=== PATIENT | female | born 1965 | race Two or more races ===

== ENCOUNTER 2024-09-08 16:42 | Emergency (ER) | payer MEDICAID, SELFPAY ==
[2024-09-08 16:43] VITALS: BMI 26.5
[2024-09-08 17:12] VITALS: BP 138/85; PULSE 83; RESP 18; TEMP 36.8; O2SAT 97
--- NOTE | 2024-09-08 17:48 | PD.EDABDPN ---
ED Abdominal Pain RME/HPI General Chief Complaint: Abdominal Pain Stated complaint: EPIGASTRIC PAIN X3 DAYS WITH N/V Time seen by provider: 09/08/24 17:23 Arrival date/time: 09/08/24 16:42 Source: patient and family Limitations: no limitations RME / HPI complaint: abdominal pain Onset (ago): day(s) (3 days) Consistency: constant Severity: moderate Severity scale (1-10): 5 Quality: cramping, stabbing and aching Radiation: none Related Data Home Medications ?Medication ?Instructions ?Recorded ?Confirmed lisinopril 2.5 mg tablet (Zestril) 2.5 mg PO QDAY ##30 10/05/16 10/01/18 montelukast 10 mg tablet 10 mg PO QPM 12/19/17 10/01/18 pantoprazole 40 mg tablet,delayed 40 mg PO QDAY 12/19/17 10/01/18 release Previous Rx's ?Medication ?Instructions ?Recorded acetaminophen 325 mg capsule 325 mg PO Q4H PRN pain #30 caps 10/01/18 aluminum-mag hydroxide-simethicone 10 ml PO TID PRN indigestion #300 04/09/21 200 mg-200 mg-20 mg/5 mL oral susp mL (Maalox Advanced) cephalexin 500 mg tablet 500 mg PO TID #21 tabs 09/11/24 Allergies Allergy/AdvReac Type Severity Reaction Status Date / Time duloxetine (From Cymbalta) Allergy Severe Abdominal Verified 09/10/24 16:57 Pain egg Allergy Severe Abdominal Verified 09/10/24 16:57 Pain milk Allergy Severe Abdominal Verified 09/10/24 16:57 Pain Review of Systems Constitutional Constitutional: Reports system reviewed and no additional complaints, except as documented Eyes Eyes: Reports system reviewed and no additional complaints, except as documented, Denies dry eyes, Denies exophthalmos and Reports floaters Cardiovascular Cardiovascular: Denies chest pain with activity and Denies claudication ED Exam General Limitations: Present no limitations General appearance: Present alert and in no apparent distress Head Head exam: Present atraumatic Eye Eye exam: Present normal appearance and EOMI ENT ENT exam: Present normal exam Neck Neck exam: Present normal inspection and full ROM Chest Chest inspection: Present normal inspection and symmetric chest wall rise Respiratory Respiratory exam: Present normal lung sounds bilaterally and respiratory distress Cardiovascular Cardiovascular exam: Present regular rate and normal rhythm Abdominal Exam Abdominal exam: Present soft and distention Extremities Exam Extremities exam: Present normal inspection and full ROM Back Exam Back exam: Present normal inspection and full ROM Neurological Exam Neurological exam: Present alert and oriented X3 Psychiatric Psychiatric exam: Present normal affect and normal mood Skin Skin exam: Present warm, dry, intact and normal color Course Quality Measures none Orders Category Date Time Status CT Screening NOW Care 09/08/24 17:50 Completed IV [Insert IV] NOW Care 09/08/24 20:[address] abdomen pelvis w con Stat Exams 09/08/24 17:49 Completed CBC Stat Lab 09/08/24 18:10 Completed CMP [Comprehensive Metabolic Panel] Stat Lab 09/08/24 18:10 Completed Lipase Stat Lab 09/08/24 18:10 Completed Ketorolac Inj [Toradol Inj] Med 09/08/24 22:50 Discontinued 30 mg IM X1 ONE DONE Vital Signs Vital signs: Vital Signs Temperature 98.3 F 09/08/24 17:12 Pulse Rate 83 09/08/24 17:12 Respiratory Rate 18 09/08/24 17:12 Blood Pressure 138/85 H 09/08/24 17:12 Pulse Oximetry (%) 97 09/08/24 17:12 Oxygen Delivery Method Room Air 09/08/24 17:12 Pulse ox room air is 97% Abdominal Pain MDM MDM Narrative MDM Narrative:: Patient had a CAT scan of the abdomen which was essentially negative. The CBC CMP UA were also essentially negative to include the lipase. Patient will be discharged home to follow-up with primary care physician within a week. Patient be discharged in no apparent distress Patient data External records reviewed:: Other (specify) Clinical information provided by:: none Social determinants that could affect healthcare access:: none Patient has the following chronic illnesses:: Patient does not have a chronic illness How is presenting disease/condition affected by chronic disease/condition?: no chronic disease Evaluation data The following diagnostics were reviewed and interpreted by me:: lab results (Results demonstrate no apparent anomalies.) and radiology exam(s) (CT of the abdomen demonstrate no apparent anomalies of the abdomen.) Lab and/or radiology exams considered but not ordered:: NA Interpretation Summary: NA Medications / Prescriptions Medications or Prescriptions considered but not ordered:: NA Medication administrations:: Medication Administration History Discontinued Medications Ketorolac Tromethamine (Ketorolac Inj 60 Mg/2 Ml Vial) 30 mg IM X1 ONE Stop: 09/08/24 22:51 Last Admin: 09/08/24 23:21 Dose: 30 mg Documented By: KF Done Consultations Consultation(s) initiated? (list below): No Diagnosis Differential diagnosis abdominal pain: abdominal pain, acute appendicitis, diverticulitis and gastroenteritis Most likely diagnosis given after review of the tests above:: Abdominal pain unknown etiology Admission Indicated Admission indicated?: not indicated Admission Request Was there a request for admission?: No Disposition Plan Disposition Plan: Discharge Discharge Attestation Discharge Attestation: The patient and all family members were given an opportunity to ask questions and understood the discharge instructions. Discharge instructions specifically effects, indications for sooner follow up or return to the emergency department, and the expected course of current diagnosis. Patient condition: Stable Discharge Plan Plan Patient Disposition: HOME (Self Care) Discharge Disposition comment: Patient will be discharged in no apparent distress Prescriptions/Referrals Prescriptions/Med Rec: No Action lisinopril [Zestril] 2.5 MG tablet 2.5 mg PO QDAY Qty: 30 pantoprazole 40 mg Tablet,Delayed Release (Dr/Ec) 40 mg PO QDAY montelukast 10 mg Tablet 10 mg PO QPM acetaminophen 325 mg capsule 325 mg PO Q4H PRN (Reason: pain) Qty: 30 0RF alum-mag hydroxide-simeth [Maalox Advanced] 200-200-20 mg/5 mL suspension 10 ml PO TID PRN (Reason: indigestion) Qty: 300 0RF cephalexin 500 mg tablet 500 mg PO TID Qty: 21 0RF Referrals: No Primary/Family,Physician [Primary Care Provider] - In 1 week Problem List Clinical Impression: Abdominal pain Impression comment: Abdominal pain unknown etiology Patient/Caregiver Discharge Instructions Education Materials: Abdominal Pain Print Language: Tajik Stand Alone Forms: Emmie Award Info., Patient Portal Info Letter PA/IT SUPPORT ENGINEER Supervising Physician PA/IT SUPPORT ENGINEER Supervising Physician: IAN CAZARES
--- NOTE | 2024-09-08 17:49 | XR_ITS ---
Examination: CT abdomen with intravenous contrast CT pelvis with intravenous contrast 2-D coronal reconstructions 2-D sagittal reconstructions Date and time of exam:September 08, 2024 1001 hours Comparison March 02, 2016. INDICATIONS: Nausea vomiting abdominal pain and epigastric pain beginning 3 days ago CTDI: vol (mGy) 8.61 DLP: (mGycm) 4.78 Technique: Multiple axial sections of the abdomen and pelvis have been obtained. 64 slice high-resolution scanner used. 3 mm axial sections have been obtained, post intravenous injection 60 cc [id number] 2-D sagittal, coronal reconstructions obtained. Low dose protocols were performed. One or more of the following dose reduction techniques were used; automated exposure control, adjustment of the mA and/or KV according to patient size, use of iterative reconstruction technique. Findings: No focal liver or splenic lesions Absent gallbladder No extrahepatic biliary tract dilatation No pancreatic or adrenal mass No renal or ureteral calculi, no hydronephrosis Abdominal aortic calcification no aneurysmal dilatation Absent appendix No diverticulitis No bowel obstruction Retroverted uterus No pelvic mass Bilateral intact Moderate osteopenia IMPRESSION: No renal or ureteral calculi, no hydronephrosis Absent appendix No bowel obstruction diverticulitis or free air
[2024-09-08 18:23] LABS: Basophils % (Auto) 0 % (0-2.5); Eosinophils % (Auto) 0 % (0-10); Hematocrit 43.9 % (36.0-46.0); Hemoglobin 15.2 g/dL (12.0-16.0); Immature Granulocytes % (Auto) 0 % (0-0); Immature Granulocytes Auto 0.03 Thou/mm3 (0.00-0.00); Lymphocytes # (Auto) 2.5 Thou/mm3 (1.0-4.8); Lymphocytes % (Auto) 23 % (10-50); Mean Corpuscular HGB Conc 34.6 g/dl (31.0-37.0); Mean Corpuscular Hemoglobin 30.1 pg (25.0-35.0); Mean Corpuscular Volume 87 fL (80-100); Monocytes # (Auto) 0.6 Thou/mm3 (0.0-0.8); Monocytes % (Auto) 6 % (0-12); Neutrophils # (Auto) 7.8 Thou/mm3 (1.8-7.7); Neutrophils % (Auto) 71 % (37-80); Nucleated Red Blood Cell % 0 /100 WBC (0); Platelet Count 284 Thou/mm3 (140-440); RDW Standard Deviation 42.5 fL (36.4-46.3); Red Blood Count 5.05 Miln/mm3 (4.00-5.20); White Blood Count 11.1 Thou/mm3 (3.6-11.0)
[2024-09-08 18:39] LABS: Alanine Aminotransferase 23 U/L (10-49); Albumin, Serum 4.9 gm/dL (3.5-5.0); Albumin/Globulin Ratio 1.6 (1.2-2.2); Alkaline Phosphatase 86 U/L (46-116); Anion Gap 9 (7-16); Aspartate Amino Transferase 16 U/L (0-34); BUN/Creatinine Ratio 21 Ratio (12-20); Bilirubin,Total 1.1 mg/dL (0.3-1.2); Blood Urea Nitrogen 19 mg/dL (9-23); Calcium 9.2 mg/dL (8.3-10.6); Calcium (Corrected) 9.2 mg/dL (8.5-10.1); Carbon Dioxide 25.6 mMol/L (20.0-31.0); Chloride 99 mMol/L (98-107); Creatinine (Component) 0.9 mg/dL (0.6-1.3); Estimated Creatinine Clearance 63.9 mL/min (>60); Glucose 108 mg/dL (74-106); Lipase 51 U/L (12-53); Osmolality,Calculated 271 (275-295); Potassium 4.3 mMol/L (3.4-5.1); Sodium 134 mMol/L (136-145); Total Protein 7.9 gm/dL (5.7-8.2); eGFR > 60 See Note
[2024-09-08] MEDS: KETOROLAC INJ 60 MG/2 ML VIAL 30 MG IM (23:21)
[2024-09-08 23:32] VITALS: BP 133/75; PULSE 77; RESP 16; TEMP 36.9; O2SAT 98
== END 2024-09-08 23:34 | disposition home or self-care (01) ==
PROVIDERS: Physician Assistant; Emergency Provider Emergency Medicine
DX: R10.13 Epigastric pain (principal); R11.2 Nausea with vomiting, unspecified
CPT/HCPCS: 36415; 74177; 80053; 83690; 85025; 96372; 99285; A4649; J1885; Q9967

== ENCOUNTER 2024-09-10 16:53 | Emergency (ER) | payer MEDICAID, SELFPAY ==
--- NOTE | 2024-09-10 17:08 | XR_ITS ---
Examination: PA chest single view TECHNIQUE: Upright PA chest single view Date and time: September 10, 2024 1718 hours Comparison April 08, 2021 INDICATIONS: Onset chest pain today. FINDINGS: Normal heart size Lungs are clear. The osseous structures are intact IMPRESSION: No active disease
[2024-09-10 17:09] VITALS: BP 123/74; PULSE 83; RESP 18; TEMP 36.7; O2SAT 98
--- NOTE | 2024-09-10 17:09 | EKG_ITS ---
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
--- NOTE | 2024-09-10 17:22 | PD.EDRME ---
Rapid Medical Screening Exam RME Arrival date/time: 09/10/24 16:53 58-year-old female presents emergency department today for complaints of dizziness abdominal pain and weight loss Chief Complaint: Dizziness Vital signs: Vital Signs Temperature 98.0 F 09/10/24 17:09 Pulse Rate 83 09/10/24 17:09 Respiratory Rate 18 09/10/24 17:09 Blood Pressure 123/74 09/10/24 17:09 Pulse Oximetry (%) 98 09/10/24 17:09 Oxygen Delivery Method Room Air 09/10/24 17:09
[2024-09-10 17:39] LABS: Basophils % (Auto) 0 % (0-2.5); Eosinophils % (Auto) 0 % (0-10); Hematocrit 39.5 % (36.0-46.0); Hemoglobin 14.1 g/dL (12.0-16.0); Immature Granulocytes % (Auto) 0 % (0-0); Immature Granulocytes Auto 0.04 Thou/mm3 (0.00-0.00); Lymphocytes # (Auto) 2.8 Thou/mm3 (1.0-4.8); Lymphocytes % (Auto) 22 % (10-50); Mean Corpuscular HGB Conc 35.7 g/dl (31.0-37.0); Mean Corpuscular Hemoglobin 30.5 pg (25.0-35.0); Mean Corpuscular Volume 86 fL (80-100); Monocytes # (Auto) 0.9 Thou/mm3 (0.0-0.8); Monocytes % (Auto) 7 % (0-12); Neutrophils % (Auto) 70 % (37-80); Nucleated Red Blood Cell % 0 /100 WBC (0); Platelet Count 259 Thou/mm3 (140-440); RDW Standard Deviation 41.9 fL (36.4-46.3); Red Blood Count 4.62 Miln/mm3 (4.00-5.20); White Blood Count 12.8 Thou/mm3 (3.6-11.0)
[2024-09-10 17:57] LABS: Collection Type, Urine Clean Catch; RBC,Urine 0 /hpf (0-3)
[2024-09-10 18:01] LABS: Partial Thromboplastin Time 26.5 Seconds (22.0-36.0); Prothrombin Time 11.4 Seconds (9.0-12.2)
[2024-09-10 18:03] LABS: B-Type Natriuretic Peptide < 20 pg/mL (0-100)
[2024-09-10 18:05] LABS: Alanine Aminotransferase 34 U/L (10-49); Albumin, Serum 4.8 gm/dL (3.5-5.0); Albumin/Globulin Ratio 1.8 (1.2-2.2); Alkaline Phosphatase 80 U/L (46-116); Anion Gap 11 (7-16); Aspartate Amino Transferase 20 U/L (0-34); BUN/Creatinine Ratio 26 Ratio (12-20); Bilirubin,Total 0.9 mg/dL (0.3-1.2); Blood Urea Nitrogen 34 mg/dL (9-23); Calcium 8.8 mg/dL (8.3-10.6); Calcium (Corrected) 8.8 mg/dL (8.5-10.1); Carbon Dioxide 25.3 mMol/L (20.0-31.0); Chloride 97 mMol/L (98-107); Creatinine (Component) 1.3 mg/dL (0.6-1.3); Globulin 2.7 gm/dL (2.3-3.5); Glucose 95 mg/dL (74-106); Magnesium 2.7 mg/dL (1.6-2.6); Osmolality,Calculated 273 (275-295); Potassium 3.8 mMol/L (3.4-5.1); Sodium 133 mMol/L (136-145); Total Protein 7.5 gm/dL (5.7-8.2); Troponin I < 0.002 ng/mL (0.0-0.045); eGFR 48 See Note
[2024-09-10 18:20] LABS: Bacteria,Urine Rare; Bilirubin,Urine Negative (Negative); Blood,Urine Negative (Negative); Clarity,Urine Clear (Clear/Hazy); Color,Urine Yellow (Lt Yel-Yel); Glucose, Urine Negative (Negative); Hyaline Casts,Urine 1 /hpf (0-1); Ketones,Urine Negative (Negative); Leukocyte Esterase,Urine Positive (Negative); Nitrite,Urine Negative (Negative); PH,Urine 5.5 (5.0-7.0); Protein,Urine Negative (Neg - Trace); Specific Gravity,Urine 1.018 (1.001-1.035); Squamous Epithelial Cell,Urine 2 /hpf (0-5); Urobilinogen,Urine Negative mg/dL (0.0-1.0); WBC,Urine 4 /hpf (0-5)
[2024-09-10 18:31] LABS: Amphetamine/Methamp Scrn,U Negative (Negative); Barbiturate Screen,Urine Negative (Negative); Benzodiazepines Screen,Urine Negative (Negative); Benzoylecgonine Screen, Ur Negative (Negative); Fentanyl Screen,Urine Negative (Negative); Opiate Screen,Urine Negative (Negative); THC Screen,Urine Negative (Negative)
[2024-09-10 20:49] VITALS: BP 142/72; PULSE 85; RESP 20; TEMP 36.7; O2SAT 98; BMI 27.4
--- NOTE | 2024-09-10 21:09 | XR_ITS ---
Examination: Abdomen sonogram, Limited Date and time of exam: September 11, 1999 2510 0 9:00 PM INDICATIONS: Epigastric pain and vomiting beginning 4 days ago Technique: Real-time fleming scale transabdominal sonographic images of the upper abdomen obtained. Findings: Absent gallbladder Common bile duct 0.5 cm Pancreatic head 2.8 cm Liver 13.3 cm no liver lesions Normal hepatopedal portal venous flow Patent IVC IMPRESSION: Normal common bile duct Liver normal size no focal liver lesions
--- NOTE | 2024-09-10 21:11 | EDNOTE_ITS ---
ED Dizzyness RME/HPI General Chief Complaint: Dizziness Stated Complaint: [facility] SENT FOR LOW BP, DIZZINESS, FEALING WEAK, Time Seen by Provider: 09/10/24 21:06 Arrival date/time: 09/10/24 16:53 RME / HPI RME / HPI Narrative: 09/10/24 16:53 58-year-old female presents emergency department today for complaints of dizziness abdominal pain and weight loss DR. MOODY?S MAIN ED EVALUATION: 58-year-old female with history of Gall bladder disease, GERD, Anemia, and Type II DM presenting to the emergency department via private auto who is presenting for chief complaint of dizziness and stabbing RUQ pain, 11/30 with no radiation x 6 days. Patient was sent by her PCP for further evaluation of unresolved dizziness and low blood pressure reading in their office today. Patient was seen here on Sunday and had a CT showing no acute findings, no obstruction, and no appendix. She also reports weight loss over the last few months and 2 episodes of vomiting. Patient denies diarrhea or any other associated symptoms or medical complaints. - PMH: Migraine, Hypertension, Asthma, Gall Bladder Disease, Gastroesophageal Reflux Disease, Arthritis, Diabetes Mellitus Type 2, Anemia - PSH: Appendectomy - Social history: Denies - Current medications: Reviewed PCP is Abdias Sosa MD MD complaint: dizziness Onset (ago): day(s) () History of trauma: No Associated symptoms: other (Abdominal pain (11/30)) Related Data Home Medications ?Medication ?Instructions ?Recorded ?Confirmed lisinopril 2.5 mg tablet (Zestril) 2.5 mg PO QDAY ##30 10/05/16 10/01/18 montelukast 10 mg tablet 10 mg PO QPM 12/19/17 pantoprazole 40 mg tablet,delayed 40 mg PO QDAY 10/01/18 release Previous Rx's ?Medication ?Instructions ?Recorded acetaminophen 325 mg capsule 325 mg PO Q4H PRN pain #3 0 caps 10/01/18 aluminum-mag hydroxide-simethicone 10 ml PO TID PRN in digestion #300 04/09/21 200 mg-200 mg-20 mg/5 mL oral susp mL (Maalox Advanced) cephalexin 500 mg tablet 500 mg PO TID #21 tabs 09/11 Allergies Allergy/AdvReac Type Severity Reaction Status Date / Time duloxetine (From Cymbalta) Allergy Severe Abdominal Verified 09/10/24 16:57 Pain egg Allergy Severe Abdominal Verified 09/10/24 16:57 Pain milk Allergy Severe Abdominal Verified 09/10/24 16:57 Pain Review of Systems Review of Systems Systems Reviewed: All systems reviewed, normal except as documented Constitutional Constitutional: Reports weight loss ENT Ears, Nose, Mouth, and Throat: Reports vertigo Gastrointestinal Gastrointestinal: Reports abdominal pain (RUQ/Epigastric), Reports vomiting (x2) and Denies other (diarrhea) Neurologic Neurologic: Reports vertigo Past Medical History Past Medical History NEUROLOGIC: Positive Migraine CARDIAC: Positive Hypertension RESPIRATORY: Positive Asthma GASTROINTESTINAL: Positive Gall Bladder Disease and Gastroesophageal Reflux Disease REPRODUCTIVE: Positive Previous Pregnancies MUSCULOSKELETAL: Positive Musculoskeletal Disorders and Arthritis ENDOCRINE: Positive Diabetes Mellitus Type 2 HEMATOLOGIC: Positive Anemia (2017 NO MED) OTHER HISTORY: Positive Chicken Pox and Measles Family History FAMILY HISTORY: Positive Family Respiratory Disorders, Family Cardiac Disorders, Family Cancer and Family Surgery Surgical History SURGICAL: Positive Abdominal Surgery (Appendectomy) ED Exam General General appearance: Present in no apparent distress Eye Eye exam: Present normal appearance, PERRL and EOMI ENT ENT exam: Present normal exam, normal oropharynx, mucous membranes moist and TM's normal bilaterally Neck Neck exam: Present normal inspection, full ROM and trachea midline; Absent tenderness Chest Chest inspection: Present normal inspection and symmetric chest wall rise; Absent tenderness or rash Respiratory Respiratory exam: Present normal lung sounds bilaterally; Absent respiratory distress, wheezes, stridor or accessory muscle use Cardiovascular Cardiovascular exam: Present regular rate, normal rhythm and normal heart sounds Abdominal Exam Abdominal exam: Present tenderness (Mild RUQ TTP); Absent distention, guarding or rebound Skin Skin exam: Present other (pale) Course Quality Measures none Orders Category Date Time Status EKG (ED ONLY) *Do not use* NOW Care 09/10/24 17:09 Completed EKG (ED Only) Stat Exams 09/10/24 17:09 Draft US gall bladder Stat Exams 09/10/24 21:09 Completed XR chest 1V Stat Exams 09/10/24 17:08 Completed B-Type Natriuretic Peptide Stat Lab 09/10/24 17:28 Completed CBC Stat Lab 09/10/24 17:28 Completed Comprehensive Metabolic Panel Stat Lab 09/10/24 17:28 Completed Drug Screen,Urine Stat Lab 09/10/24 17:47 Completed Magnesium Stat Lab 09/10/24 17:28 Completed Partial Thromboplastin Time Stat Lab 09/10/24 17:28 Completed Prothrombin Time with INR Stat Lab 09/10/24 17:28 Completed Troponin I Stat Lab 09/10/24 17:28 Completed Troponin I Stat Lab 09/10/24 21:14 Completed Urinalysis Stat Lab 09/10/24 17:47 Completed Sodium Chloride 0.9% 1000 ml [Ns] 1,000 ml Med 09/10/24 21:10 Discontinued IV 999 mls/hr Vital Signs Vital signs: Vital Signs Temperature 98.0 F 09/10/24 17:09 Pulse Rate 83 09/10/24 17:09 Respiratory Rate 18 09/10/24 17:09 Blood Pressure 123/74 09/10/24 17:09 Pulse Oximetry (%) 98 09/10/24 17:09 Oxygen Delivery Method Room Air 09/10/24 17:09 Dizziness MDM Narrative MDM Narrative:: Scribe Attestation: 09/10/2024 Rissa Gardner am scribing for and in the presence of Dr. Moody. Provider Notation: Although this document has been carefully reviewed, there may still be some phonetic and other typographical errors.? These errors are purely grammatical due to imperfections in the software program and should not be construed in any way to compromise the substance of the patient's medical care during this visit. 58-year-old female with history of Gall bladder disease, GERD, Anemia, and Type II DM presenting to the emergency department via private auto who is presenting for chief complaint of dizziness and RUQ stabbing pain, 8/10 with no radiation x 6 days. She also reports weight loss over the last few months and 2 episodes of vomiting. ROS: RUQ abdominal pain, dizzyness, vomiting, denies diarrhea Differential diagnoses includes gall stones, dehydration, electrolyte abnormality, undiagnosed cancer, anemia, UTI Patient data External records reviewed:: [facility] previous records (Reviewed prior ED records from 09/08/24. Patient was seen for Abdominal pain.) Clinical information provided by:: patient Social determinants that could affect healthcare access:: none Patient has the following chronic illnesses:: Migraine, Hypertension, Asthma, Gall Bladder Disease, Gastroesophageal Reflux Disease, Arthritis, Diabetes Mellitus Type 2, Anemia How is presenting disease/condition affected by chronic disease/condition?: exacerbated by Evaluation data The following diagnostics were reviewed and interpreted by me:: lab results, radiology exam(s) and EKG tracing(s) (EKG manual reading, September 10, 2024 1714 hours, my interpretation: sinus rhythm, 88 BPM, QTc is 433, normal intervals, no ST elevations or depressions) Lab and/or radiology exams considered but not ordered:: None Interpretation Summary: RADIOLOGY Chest X-Ray: CXR, my interpretation: reviewed, interpreted, and agreed with radiologist report; see below. FINDINGS: Normal heart size Lungs are clear. The osseous structures are intact IMPRESSION: No active disease Gall Bladder US: Findings: Absent gallbladder Common bile duct 0.5 cm Pancreatic head 2.8 cm Liver 13.3 cm no liver lesions Normal hepatopedal portal venous flow Patent IVC IMPRESSION: Normal common bile duct Liver normal size no focal liver lesions LABS WBC 12.8, Neutrophil # 9.0, Monocyte # 0.9, Immature Granulocyte # 0.04. Sodium 133, Chloride 97, BUN34, eGFR 48, BUN/Creatinine Ratio 26, Calculated Osmolality 273, Magnesium 2.7, Troponin I < 0.002, Repeat Troponin I < 0.020. Medications / Prescriptions Medications or Prescriptions considered but not ordered:: None Medication administrations:: Medication Administration History Discontinued Medications Sodium Chloride (Ns) 1,000 mls @ 999 mls/hr IV .Q1H1M ONE Stop: 09/10/24 22:10 Last Infusion: 09/10/24 22:18 Dose: Infused Documented By: Admin: 09/10/24 21:15 Dose: 999 mls/hr Documented By: TAE See above if any Consultations Consultation(s) initiated? (list below): No Diagnosis Dizziness Differential Diagnosis: other (gall stones, dehydration, electrolyte abnormality, undiagnosed cancer, anemia, UTI) Most likely diagnosis given after review of the tests above:: UTI Admission Indicated Admission indicated?: not indicated Explain why admission is indicated or not indicated:: Does not meet admission criteria Admission Request Was there a request for admission?: No Disposition Plan Disposition Plan: Discharge Discharge Attestation Discharge Attestation: The patient and all family members were given an opportunity to ask questions and understood the discharge instructions. Discharge instructions specifically effects, indications for sooner follow up or return to the emergency department, and the expected course of current diagnosis. Patient condition: Stable Discharge Plan Plan Patient Disposition: HOME (Self Care) Patient condition on transfer: Stable Prescriptions/Referrals Prescriptions/Med Rec: New cephalexin 500 mg tablet 500 mg PO TID Qty: 21 0RF No Action lisinopril [Zestril] 2.5 MG tablet 2.5 mg PO QDAY Qty: 30 pantoprazole 40 mg Tablet,Delayed Release (Dr/Ec) 40 mg PO QDAY montelukast 10 mg Tablet 10 mg PO QPM acetaminophen 325 mg capsule 325 mg PO Q4H PRN (Reason: pain) Qty: 30 0RF alum-mag hydroxide-simeth [Maalox Advanced] 200-200-20 mg/5 mL suspension 10 ml PO TID PRN (Reason: indigestion) Qty: 300 0RF Referrals: Abdias Sosa MD [Primary Care Provider] - In 1 week Problem List Clinical Impression: UTI (urinary tract infection) Patient/Caregiver Discharge Instructions Education Materials: ED CYSTITIS Female Adult Additional Instructions: Even though you have been discharged from the Emergency Department, there are several things that you should do to ensure that you receive proper care: 1. DO READ your discharge instructions as these contain important information concerning your medical care. 2. If medication has been prescribed for your condition, fill the prescription as soon as possible and follow the directions on the medication. 3. RETURN AT ONCE TO THE EMERGENCY DEPARTMENT if you have any problems or concerns. These include but are not limited to fever, worsening pain(belly, chest, head, etc?), worsening shortness of breath, uncontrollable bleeding, inability to tolerate food and water, or any condition that makes you question your well-being. Also, if your symptoms do not improve in the next 12-24 hours, return to the ER or seek medical care immediately. 4. Be sure to follow up with your regular physician or specialist as instructed at discharge as this is the best way to ensure that you receive the very best of care. If you do not have a primary care physician, please contact a physician group and make an appointment. 5. Please visit [employer] for coupons regarding your prescriptions. It is a free service for you to use and can help reduce the cost of your medication. We would like to thank you for coming today and our hope is that we served you and your family well during your stay General Adult Discharge Instructions(Georgian) ted ibarra sido dado de papa del Departamento de Emergencias sin embargo hay algunas cosas que debe hacer para asegurarse de que usted continue recibiendo el cuidado adecuado. Por favor vicky las siguientes instrucciones con atenci?n: ? 1. Si es que le dieron alguna prescripci?n (medicamento), asegurese de ir a la farmacia de brooks preferencia, llenar el medicamento y tomarlo conforme a las instrucciones. ? 2. Leas las instrucciones de papa con mucho cuidado dado que contienen informaci?n importante para brooks deyanira y cuidado. 3. REGRESE AL DEPARTAMENTO DE EMERGENCIA SI tiene alg?n tipo de problema o preocupaci?n. [place] incluye sekou no esta limitado a fiebre, mucho dolor abdominal, dolor de pecho, mucho dolor de maribell, falta de aire, sangrado incontrolable, nauseas o vomitos incontrolables, inhabilidad de tolerar alimentos, o cualquier otro tipo de condici?n que le vito cuestionar brooks deyanira. 4. Asegurese de seguir con brooks medico primario (tambien llamado medico de susana) o con el medico especialista que le indicaron al momento del papa en 3 a 5 bass dado que esta es la mejor manera de asegurar que oracio recibiendo el mejor cuidado medico. ? 5. Si es que tiene un telefono inteligente (smartphone) revise la pagina web o aplicaci?n GoodRx antes de pagar por quan prescripciones (medicinas) dado que asi podr?a encontrar un cup?n para que quan medicinas ksenia menos costosas. El servicio es gratuito. ? Le agradecemos brokos visita el nieves de hoy y esperamos que brooks deyanira mejore. Print Language: Georgian Stand Alone Forms: Emmie Award Info., Patient Portal Info Letter
[2024-09-10] MEDS: SODIUM CHLORIDE 0.9% 1000 ML 1,000 ML 999 ML IV (21:15)
[2024-09-10 21:58] LABS: Troponin I < 0.020 ng/mL (0.0-0.045)
[2024-09-11 00:24] VITALS: RESP 18
== END 2024-09-11 00:26 | disposition home or self-care (01) ==
PROVIDERS: Nurse Practitioner Primary Care; Emergency Provider Emergency Medicine; PCP Family Medicine
DX: N39.0 Urinary tract infection, site not specified (principal); E11.9 Type 2 diabetes mellitus without complications; K21.9 Gastro-esophageal reflux disease without esophagitis
CPT/HCPCS: 36415; 71045; 76705; 80053; 80307; 81001; 83735; 83880; 84484; 85025; 85610; 85730; 93005; 96360; 99284; J7030